=== PATIENT | female | born 1970 | race Caucasian/White ===

== ENCOUNTER 2017-07-26 17:25 | Emergency (ER) | payer OTHER ==
[~2017-07-26] VITALS: Ht 160 cm; Wt 89.8 kg
[~2017-07-26 17:25] MED LIST: ADDERALL 10 MG10 MG PO; AFRIN MENTHOL S15 ML; KEFLEX500 MG; LEXAPRO20 MG; METFORMIN PO; PERCOCET 7.5-31 EACH; XANAX XR1 MG PO; ZESTORETIC
[2017-07-26] MEDS ORDERED: VITAMIN D1000 UNI1 PO (17:47)
[2017-07-26] MEDS ORDERED: XANAX 0.25 MG0.25 MG PO (17:47)
[2017-07-26] MEDS ORDERED: LEXAPRO 10 MG T10 M2 PO (17:47)
[2017-07-26] MEDS ORDERED: PROTONIX 20 MG20 M1 PO (17:48)
[2017-07-26] MEDS ORDERED: SPIRONOLACTONE25 M1 PO (17:48)
[2017-07-26] MEDS ORDERED: ULTRAM 50MG TAB50 MG PO (18:44)
[2017-07-26 18:57] VITALS: BP 123/68
== END 2017-07-26 18:58 | disposition home or self-care (01) ==
LOC: M.ERS 17:25
DX: S90.31XA Contusion of right foot, initial encounter (principal); E11.9 Type 2 diabetes mellitus without complications; F32.9 Major depressive disorder, single episode, unspecified; F41.9 Anxiety disorder, unspecified; I10 Essential (primary) hypertension; Z88.1 Allergy status to other antibiotic agents; Z88.0 Allergy status to penicillin; Z88.5 Allergy status to narcotic agent; Z88.8 Allergy status to other drugs, medicaments and biological substances; W18.39XA Other fall on same level, initial encounter; Y93.89 Activity, other specified; Y92.89 Other specified places as the place of occurrence of the external cause; Y99.8 Other external cause status

== ENCOUNTER 2018-02-08 12:35 | Inpatient (IN) | payer OTHER ==
[~2018-02-08] VITALS: Ht 160 cm; Wt 94.3 kg
[~2018-02-08 12:35] MED LIST changes: +LEXAPRO 10 MG T10 M2 PO; +PROTONIX 20 MG20 M1 PO; +SPIRONOLACTONE25 M1 PO; +ULTRAM 50MG TAB50 MG PO; +VITAMIN D1000 UNI1 PO; +XANAX 0.25 MG0.25 MG PO
[2018-02-08 12:39] VITALS: BP 133/70
[2018-02-08] MEDS ORDERED: DONPERIDONE PO (12:44)
[2018-02-08 13:08] LABS: ABSOLUTE EOSINOPHILS 0.2 thou/uL (0.0-0.7); ABSOLUTE MONOCYTES 0.6 thou/uL (0.0-1.2); ABSOLUTE NEUTROPHILS 6.3 thou/uL (1.6-8.1); BASOPHILS 0.3 %; EOSINOPHILS 2.2 %; HEMATOCRIT 45.2 % (37.0-47.0); HEMOGLOBIN 15.4 gm/dL (12.0-15.0); LYMPHOCYTES 22.2 %; MCH 31.7 pg (26.0-34.0); MCHC 34.1 g/dL (28.0-37.0); MCV 92.7 fL (80.0-100.0); MONOCYTES 6.4 %; MPV 8.1 fl. (7.2-11.1); NUCLEATED RBCS 0 /100WBC; PLATELET COUNT* 238 thou/uL (150-400); POLYS 68.9 %; RBC 4.88 mil/uL (4.20-5.00); RDW-CV 13.7 % (10.5-14.5); WBC 9.2 thou/uL (4.0-11.0)
[2018-02-08 13:16] LABS: ANION GAP 7 mmol/L (7-16); BUN 15 mg/dL (7-18); CALCIUM 9.4 mg/dL (8.5-10.1); CHLORIDE 105 mmol/L (98-107); CO2 27 mmol/L (21-32); CREATININE 1.4 mg/dL (0.6-1.3); GLUCOSE 87 mg/dL (70-99); SODIUM 139 mmol/L (136-145)
[2018-02-08 13:17] LABS: PROTIME 10.1 Seconds (9.20-11.50)
[2018-02-08 13:28] LABS: ALBUMIN 3.3 g/dL (3.4-5.0); ALKALINE PHOSPHATASE 139 U/L (46-116); LIPASE 227 U/L (73-393); NT-PRO BRAIN NAT PEPTIDE 117 pg/mL (<300); SGOT 14 U/L (15-37); SGPT 21 U/L (30-65); TOTAL BILIRUBIN 0.3 mg/dL (<0.1-1.0); TOTAL PROTEIN 6.7 g/dL (6.4-8.2); TROPONIN-I LEVEL <0.06 ng/mL (<0.06)
[2018-02-08 16:55] VITALS: BP 120/75
[2018-02-08 17:00] VITALS: BP 134/86
[2018-02-08] MEDS ORDERED: TOPAMAX25 M1 PO (18:38)
[2018-02-08 20:10] VITALS: BP 112/65
[2018-02-09] VITALS (16 sets, daily range): BP systolic 90–124; BP diastolic 40–79
[2018-02-09 11:31] LABS: CHOLESTEROL 132 mg/dL (<200); HDL CHOLESTEROL 41 mg/dL (>40); LDL CHOLESTEROL 82 mg/dL (<100); TC:HDL 3.2 Ratio (Not establshd)
[2018-02-09 11:49] LABS: TRIGLYCERIDE 45 mg/dL (<150); VLDL 9 mg/dL (<40)
[2018-02-09 11:58] LABS: SERUM ASSESSMENT Clear
--- NOTE | 2018-02-09 15:36 | EKG ---
[place] [address] ELECTROCARDIOGRAM REPORT Name: MARGOTBRITNI CHRISTIAN Room: [address] ADM IN M.R.#: [id number] Admission: 02/08/18 Attend Phys: Deena De Leon Discharge: Date of : 70 Report #: [id number] THIS REPORT FOR: //name// [facility] ED Test Date: 2018-02-08 Test Time: 12:39:55 Pat Name: BRITNI FROST Department: Room: [facility] Gender: F Residence Counselor: TP : 1970 Requested By: Santos Veloz Order Number: [id number] MD: Hany Tavares Measurements Intervals [place] Rate: 85 P: 15 MN: 123 QRS: 10 QRSD: 76 T: 68 QT: 355 QTc: 422 Interpretive Statements Sinus rhythm Borderline low voltage, extremity leads ST elevation, consider inferior injury No previous ECG available for comparison Electronically Signed On 02-09-2018 15:36:48 TRAP OPERATOR by Hany Tavares [email or web address] <ELECTRONICALLY SIGNED> By: Hany Tavares MD, [facility] 02/09/18 1536 1239 1239 Hany Tavares MD, FACC /EPI
--- NOTE | 2018-02-09 15:37 | EKG ---
[place] [address] ELECTROCARDIOGRAM REPORT Name: BRITNI FROST Room: [address] ADM IN M.R.#: [id number] Admission: 02/08/18 Attend Phys: Deena De Leon Discharge: Date of : 70 Report #: [id number] THIS REPORT FOR: //name// [facility] ED Test Date: 2018-02-08 Test Time: 14:32:13 Pat Name: BRITNI FROST Department: Room: [facility] Gender: F Cra Officer: Jose Juan APPIAH : 1970 Requested By: Santos Veloz Order Number: [id number] MD: Hany Tavares Measurements Intervals [place] Rate: 62 P: -8 WA: 119 QRS: 13 QRSD: 83 T: 27 QT: 390 QTc: 396 Interpretive Statements Sinus rhythm Borderline short [place] interval Borderline low voltage, extremity leads ST elev, probable normal early repol pattern No previous ECG available for comparison Electronically Signed On 02-09-2018 15:37:24 SURGICAL TECHNOLOGY INSTRUCTOR by Hany Tavares [email or web address] <ELECTRONICALLY SIGNED> By: Hany Tavares MD, [facility] 02/09/18 1537 1432 1432 Hany Tavares MD, [facility] /EPI
[2018-02-09 22:05] LABS: GLYCOHEMOGLOBIN (HGB A1C) 5.8 % (4.8-5.6)
[2018-02-10] VITALS (9 sets, daily range): BP systolic 94–117; BP diastolic 53–80
[2018-02-10 04:52] LABS: CALCIUM 8.5 mg/dL (8.5-10.1); CREATININE 1.3 mg/dL (0.6-1.3); POTASSIUM 4.3 mmol/L (3.5-5.1)
[2018-02-10 04:58] LABS: ABSOLUTE BASOPHILS 0.1 thou/uL (0.0-0.2); ABSOLUTE EOSINOPHILS 0.2 thou/uL (0.0-0.7); ABSOLUTE LYMPHOCYTES 2.2 thou/uL (0.8-5.3); ABSOLUTE NEUTROPHILS 7.1 thou/uL (1.6-8.1); BASOPHILS 0.7 %; HEMATOCRIT 41.5 % (37.0-47.0); HEMOGLOBIN 13.8 gm/dL (12.0-15.0); LYMPHOCYTES 20.6 %; MCH 31.2 pg (26.0-34.0); MCHC 33.2 g/dL (28.0-37.0); MCV 93.8 fL (80.0-100.0); MONOCYTES 9.2 %; MPV 8.6 fl. (7.2-11.1); NUCLEATED RBCS 0 /100WBC; PLATELET COUNT* 203 thou/uL (150-400); POLYS 67.5 %; RBC 4.43 mil/uL (4.20-5.00); RDW-CV 13.9 % (10.5-14.5); WBC 10.5 thou/uL (4.0-11.0)
--- NOTE | 2018-02-10 10:12 | CON ---
[address] [address] CONSULTATION Name: BRITNI FROST Room: [address] ADM IN M.R.#: [id number] Admission: 02/08/18 Attend Phys: Deena De Leon Discharge: Date of : 70 Report #: [id number] THIS REPORT FOR: //name// CC: Antonio Strickland DATE OF SERVICE: 02/09/2018 INDICATION: Chest pain with elevated troponin. HISTORY OF PRESENT ILLNESS: The patient is a 47-year-old white female with no prior cardiac history. She was admitted to the hospital yesterday with chest discomfort that began after bringing some grocery bags into her house approximately 11:00. The pain has been persistent. EKG shows sinus rhythm with possible very subtle ST elevation in the inferior leads. The patient's initial troponin was less than 0.06 and has subsequently elevated to 7.1. She has continued to have midsternal chest discomfort. She denies nausea or diaphoresis. She is without other cardiac complaint. PAST MEDICAL HISTORY: 1. Depression. 2. Anxiety. 3. Gastroparesis. 4. Hypertension. 5. Previous adenoidectomy. 6. Previous septoplasty. 7. Bilateral knee arthroplasty. 8. Previous lumpectomy bilaterally. 9. Hysterectomy. SOCIAL HISTORY: The patient quit smoking in December. FAMILY HISTORY: No direct relatives with coronary artery disease, although the patient's paternal relatives had coronary artery disease. REVIEW OF SYSTEMS: Noncontributory. PHYSICAL EXAMINATION: VITAL SIGNS: Blood pressure 107/66, pulse 69 and regular. GENERAL: This is a pleasant female in no distress. Mood and affect appropriate. HEENT: The patient is wearing glasses. Extraocular muscles intact. Mucous membranes moist. NECK: Shows no jugular venous distention. There are no carotid bruits. CHEST: Reveals clear lung hughes without wheezes, rales or rhonchi. CARDIOVASCULAR: Reveals regular rhythm with normal S1 [place] [address] CONSULTATION Name: BRITNI FROST Room: [address] IN [facility].#: [id number] Admission: 02/08/18 Attend Phys: Deena De Leon Discharge: Date of : 70 Report #: [id number] appreciate murmur, rub or gallop. ABDOMEN: Reveals normal bowel sounds. The abdomen is soft, nontender. EXTREMITIES: Shows no edema. Peripheral pulses 2+ and palpable. SKIN: Warm and dry. LABORATORY DATA: A 12-lead EKG shows sinus rhythm with some perhaps very subtle ST segment elevation in the inferior leads. EKG today shows some T-wave inversion now in the inferior leads. IMPRESSION AND RECOMMENDATIONS: 1. Myocardial infarction. The patient will be taken to the cardiac catheterization lab for urgent angiography and possible intervention. Continue heparin drip at this time. The patient received aspirin in the Emergency Room and has been on beta elizabeth since being admitted. Further medication adjustments post-intervention. 2. Hypertension. Blood pressure adequately controlled presently. We will follow. 3. Lipid status unknown. We will check fasting lipid profile. <ELECTRONICALLY SIGNED> By: Hany Tavares MD, FACC 02/10/18 1012 1146 [id number] Tavares MD, FACC /nt
--- NOTE | 2018-02-10 10:18 | EKG ---
[place] [address] ELECTROCARDIOGRAM REPORT Name: MARGOTBRITNI CHRISTIAN Room: [address] ADM IN M.R.#: [id number] Admission: 02/08/18 Attend Phys: Deena De Leon Discharge: Date of : 70 Report #: [id number] THIS REPORT FOR: //name// Test Date: 2018-02-09 Test Time: 11:31:50 Pat Name: BRITNI FROST Department: Room: [facility] Gender: F [place] Room Operator: UNKNOWN : 1970 Requested By: Hany Tavares Order Number: [id number] Natividad MD: Jarvis Christine Measurements Intervals [place] Rate: 52 P: -14 MO: 124 QRS: 1 QRSD: 78 T: 3 QT: 427 QTc: 397 Interpretive Statements Sinus bradycardia Borderline low voltage, extremity leads Compared to ECG 02/08/2018 14:32:13 rate slowed Electronically Signed On 02-10-2018 10:18:36 SURGICAL TECHNOLOGIST by Jarvis Christine [email or web address] <ELECTRONICALLY SIGNED> By: Jarvis Christine MD, [facility] 02/10/18 1018 D: [id number] 30 Jarvis Christine MD, FACC /EPI
--- NOTE | 2018-02-10 12:46 | CARD ---
[address] [address] CARDIAC CATH REPORT Name: BRITNI FROST Room: 003- ADM IN M.R.#: [id number] Admission: 02/08/18 Attend Phys: Deena De Leon Discharge: Date of : 70 Report #: [id number] THIS REPORT FOR: //name// APPROVED REPORT Study performed: 02/09/2018 11:50:11 Patient Details Patient Status: IN Room #: ICU 3 The patient is a 47 year-old female Event Personnel Dano Stevenson Drawing Checker, Triny Lyn RN [employer] Sales Consultant, Rakesh Hicks Haley, Jessica RTSirisha Monitor Procedures Performed Art Access - R femoral artery* Left Heart Cath w/or w/o Coronaries LHC Hemostasis w/ Mynx Indication Non-STEMI , Chest pain Risk Factors HypercholesterolemiaPhysical Activity Procedure Narrative The patient was brought emergently to the Cardiac Catheterization Laboratory and was prepped and draped in a sterile manner. The right femoral was infiltrated with 2% Lidocaine subcutaneous anesthesia. A 6fr Ultimum Sheath sheath was inserted into the right femoral artery. Coronary angiography was performed using coronary diagnostic catheters. The right coronary system was accessed and visualized with a Diagnostic 5Fr 3DRC catheter. The left coronary system was accessed and visualized with a Diagnostic 6FR JL3.5 catheter. The left ventricle was accessed and visualized with a Diagnostic 6Fr angled pigtail catheter. Closure device was deployed with a Fr MynxGrip 6/7F. The patient tolerated the procedure well and there were no complications associated with the procedure. Intraoperative Conscious Sedation Sedation start time: 12:36 Case end Time: Fluoro Time: 6.4 minutes Dose: DAP 95351 cGycm2 1355 [place] [address] CARDIAC CATH REPORT Name: BRITNI FROST Room: [address] IN [facility]#: [id number] Admission: 02/08/18 Attend Phys: Deena De Leon Discharge: Date of : 70 Report #: [id number] Contrast Type and Amount: Visipaque 130 ml Coronary Angiography The patient's coronary anatomy is co- dominant. Diagnostic Cath Left Main There are separate ostia for the LAD and left circumflex arteries. LAD This is a moderate size caliber vessel, traveling down the anterior wall and wrapping around the apex, terminating in the distal inferior wall. There are no flow-limiting lesions in the LAD or its branches. Diagonal 1 Small to moderate size caliber vessel, patent with no flow-limiting lesions. Circumflex Codominant vessel, with no flow-limiting lesions. OM1 Moderate size caliber vessel, traveling down the lateral wall and terminates in the distal inferolateral segment. This is a patent vessel with no flow-limiting lesions. Right Coronary This is a patent vessel, with no flow-limiting lesions. R PDA This is a small-caliber vessel, appears to have a total occlusion in the mid segment. Medical therapy is recommended. Left Ventriculography The left ventricle is normal in size with normal contractility. The left ventricular ejection fraction is estimated to be 50-55%. Hemodynamics The aortic pressure is 126/65 mmHg with a mean of 61 mmHg. The left ventricular pressure is 126/7 mmHg with a mean of mmHg. The left ventricular end diastolic pressure is 15 mmHg. Pullback from the left ventricle to the aorta revealed no gradient across the aortic valve. Conclusion 1. Essentially patent coronary artery vessels with no evidence for flow limiting lesions. 2. Codominant system. 3. There appears to be a total occlusion [place] [address] CARDIAC CATH REPORT Name: BRITNI FROST Room: [address] IN ..#: [id number] Admission: 02/08/18 Attend Phys: Deena De Leon Discharge: Date of : 70 Report #: [id number] small PDA vessel, medical therapy is recommended. 4. Recommend aggressive risk factor management. <ELECTRONICALLY SIGNED> By: Dano Stevenson MD 02/10/18 1245 1245 1245Jin Chase Stevenson MD /INF
[2018-02-11] VITALS: BP 108/65
[2018-02-11 04:00] VITALS: BP 100/52
[2018-02-11 08:44] VITALS: BP 97/40
[2018-02-11 11:23] VITALS: BP 111/67
--- NOTE | 2018-02-11 13:52 | 2DMMODE ---
[place] [address] 2 D/M-MODE ECHOCARDIOGRAM Name: MARGOTBRITNI AGUIARITH Room: [facility] ADM IN [facility]#: [id number] Admission: 02/08/18 Attend Phys: Silvia Strickland Discharge: Date of : 70 Date of Service: 02/11/18 1352 Report #: [id number] THIS REPORT FOR: //name// APPROVED REPORT Study performed: 02/11/2018 11:39:46 EXAM: Comprehensive 2D, Doppler, and color-flow Echocardiogram Patient Location: In-Patient Room #: [facility] Status: routine BSA: 1.97 HR: 65 bpm BP: 92/40 mmHg Rhythm: NSR Other Information Study Quality: Good Indications Chest Pain 2D Dimensions IVSd: 9.79 (7-11mm) LVOT Diam: 19.30 (18-24mm) LVDd: 40.79 mm PWd: 8.60 (7-11mm) Ascending Ao: 31.14 (22-36mm) LVDs: 25.80 (25-40mm) Aortic Root: 28.63 mm Volumes Left Atrial Volume (Systole) LA ESV Index: 14.00 mL/m2 Aortic Valve AoV Peak Rustam.: 1.34 m/s AO Peak Gr.: 7.16 mmHg LVOT Max P.38 mmHg AO Mean Gr.: 3.63 mmHg LVOT Mean P.00 mmHg LVOT Max V: 1.05 m/s AO V2 VTI: 26.30 cm LVOT Mean V: 0.64 m/s VASYL (VTI): 2.43 cm2 LVOT V1 VTI: 21.83 cm Mitral Valve E/A Ratio: 1.04 MV Decel. Time: 194.76 ms MV E Max Rustam.: 0.85 m/[place] [address] 2 D/M-MODE ECHOCARDIOGRAM Name: BRITNI FROST Room: [place] [address] ADM IN .R.#: [id number] Admission: 02/08/18 Attend Phys: Silvia Strickland Discharge: Date of : 70 Date of Service: 02/11/18 1352 Report #: [id number] MV PHT: 56.48 ms MVA (PHT): 3.90 cm2 TDI E/Lateral E': 5.31 E/Medial E': 10.63 Medial E' Rustam.: 0.08 m/s Lateral E' Rustam.: 0.16 m/s Pulmonary Valve PV Peak Rustam.: 0.93 m/s PV Peak Gr.: 3.45 mmHg Tricuspid Valve RAP Estimate: 5.00 mmHg TR Peak Gr.: 20.82 mmHg RVSP: 25.00 mmHg PA Pressure: 25.00 mmHg Left Ventricle The left ventricle is normal size. There is normal LV segmental wall motion. There is normal left ventricular wall thickness. Left ventricular systolic function is normal. LVEF is 60-65%. Transmitral Doppler flow pattern suggests impaired LV relaxation. Right Ventricle The right ventricle is normal size. The right ventricular systolic function is normal. Atria The left atrium size is normal. The right atrium size is normal. Aortic Valve The aortic valve is normal in structure. No aortic regurgitation is present. There is no aortic valvular stenosis. Mitral Valve The mitral valve is normal in structure. Trace mitral regurgitation. No evidence of mitral valve stenosis. Tricuspid Valve The tricuspid valve is normal in structure. No pulmonary hypertension. Trace tricuspid regurgitation. Pulmonic Valve The pulmonary valve is normal in structure. There is no pulmonic [place] [address] 2 D/M-MODE ECHOCARDIOGRAM Name: BRITNI FROST Room: [address] IN [facility]#: [id number] Admission: 02/08/18 Attend Phys: Silvia Strickland Discharge: Date of : 70 Date of Service: 02/11/18 1352 Report #: [id number] Great Vessels The aortic root is normal in size. IVC is not well visualized. Pericardium There is no pericardial effusion. <Conclusion> The left ventricle is normal size. There is normal left ventricular wall thickness. Left ventricular systolic function is normal. LVEF is 60-65%. Transmitral Doppler flow pattern suggests impaired LV relaxation. <ELECTRONICALLY SIGNED> By: Hany Tavares MD, FACC 02/11/18 1352 1352 135 Hany Tavares MD, FACC /INF
[2018-02-11] MEDS ORDERED: TOPROL XL25 MG PO (14:24)
[2018-02-11] MEDS ORDERED: LIPITOR10 MG PO (14:25)
[2018-02-11] MEDS ORDERED: COLCHICINE0.6 MG PO (14:25)
[2018-02-11 14:26] VITALS: BP 111/67
[2018-02-11 15:24] VITALS: BP 89/51
[2018-02-11] MEDS ORDERED: IBUPROFEN 800800 M1 PO (15:48)
== END 2018-02-11 16:38 | disposition home or self-care (01) | DRG 282 ==
LOC: M.ERS 12:35 → M.TBA-ER 15:45 → M.2W 15:45 → M.ICU 02-09 13:08 → M.2W 02-11 00:14
PROVIDERS: Emergency Medicine; Internal Medicine Cardiovascular Disease; ADMIT Internal Medicine
PROC: 4A023N7 Measurement of Cardiac Sampling and Pressure, Left Heart, Percutaneous Approach (ICD-10-PCS; principal; 2018-02-09)
PROC: B211YZZ Fluoroscopy of Multiple Coronary Arteries using Other Contrast (ICD-10-PCS; principal; 2018-02-09)
DX: I21.4 Non-ST elevation (NSTEMI) myocardial infarction (principal); F32.9 Major depressive disorder, single episode, unspecified; I51.4 Myocarditis, unspecified; K31.84 Gastroparesis; Z96.653 Presence of artificial knee joint, bilateral; F41.9 Anxiety disorder, unspecified; I10 Essential (primary) hypertension; Z88.6 Allergy status to analgesic agent; Z88.0 Allergy status to penicillin; Z88.8 Allergy status to other drugs, medicaments and biological substances; Z79.82 Long term (current) use of aspirin; Z79.899 Other long term (current) drug therapy; Z90.710 Acquired absence of both cervix and uterus; Z87.891 Personal history of nicotine dependence

== ENCOUNTER 2018-02-21 10:24 | Inpatient (IN) | payer OTHER ==
[~2018-02-21] VITALS: Ht 160 cm; Wt 88.5 kg
[~2018-02-21 10:24] MED LIST changes: +COLCHICINE0.6 MG PO; +DONPERIDONE PO; +IBUPROFEN 800800 M1 PO; +LIPITOR10 MG PO; +TOPAMAX25 M1 PO; +TOPROL XL25 MG PO
[2018-02-21 10:27] VITALS: BP 127/83
[2018-02-21 11:11] LABS: ABSOLUTE BASOPHILS 0.1 thou/uL (0.0-0.2); ABSOLUTE EOSINOPHILS 0.1 thou/uL (0.0-0.7); ABSOLUTE LYMPHOCYTES 2.3 thou/uL (0.8-5.3); ABSOLUTE MONOCYTES 1.1 thou/uL (0.0-1.2); ABSOLUTE NEUTROPHILS 8.8 thou/uL (1.6-8.1); EOSINOPHILS 0.9 %; HEMATOCRIT 43.4 % (37.0-47.0); HEMOGLOBIN 14.7 gm/dL (12.0-15.0); LYMPHOCYTES 18.3 %; MCH 31.1 pg (26.0-34.0); MCHC 33.8 g/dL (28.0-37.0); MCV 91.9 fL (80.0-100.0); MPV 8.5 fl. (7.2-11.1); NUCLEATED RBCS 0 /100WBC; PLATELET COUNT* 299 thou/uL (150-400); POLYS 70.8 %; RBC 4.72 mil/uL (4.20-5.00); RDW-CV 13.6 % (10.5-14.5); WBC 12.5 thou/uL (4.0-11.0)
[2018-02-21 11:15] LABS: PROTIME 10.5 Seconds (9.20-11.50)
[2018-02-21 11:42] LABS: ANION GAP 12 mmol/L (7-16); BUN 27 mg/dL (7-18); CALCIUM 9.2 mg/dL (8.5-10.1); CHLORIDE 103 mmol/L (98-107); CO2 22 mmol/L (21-32); CREATININE 1.5 mg/dL (0.6-1.3); GLUCOSE 99 mg/dL (70-99); POTASSIUM 3.9 mmol/L (3.5-5.1); SODIUM 137 mmol/L (136-145)
[2018-02-21 11:47] LABS: ALBUMIN 3.6 g/dL (3.4-5.0); ALKALINE PHOSPHATASE 139 U/L (46-116); MAGNESIUM 1.7 mg/dL (1.8-2.4); NT-PRO BRAIN NAT PEPTIDE 915 pg/mL (<300); SGOT 17 U/L (15-37); SGPT 24 U/L (30-65); TOTAL BILIRUBIN 0.3 mg/dL (<0.1-1.0); TOTAL PROTEIN 6.7 g/dL (6.4-8.2); TROPONIN-I LEVEL <0.06 ng/mL (<0.06)
[2018-02-21 15:05] VITALS: BP 141/94
--- NOTE | 2018-02-21 16:12 | NUR ---
PT ARRIVED ON THE UNIT AT 1515. ASSESSED PT AND DOCUMENTED. CARDIAC MONITER ON TRACING ST HR 116. PT IS A&O WITH NO C/O PAIN. 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 THIS IS HER LAST XMAS WITH HER BOSS HE IS RETIREING. VSS WNL. LUNGS ARE CLEAR ON ROOM AIR. PT IS AFEBRILE. PT REFUSED SCD'S AND THE FLUE SHOT. FALL AGREEMENT SIGNED. BED IN LOW POSITION CALL LIGHT IS IN REACH.
[2018-02-21 16:19] VITALS: BP 143/79
--- NOTE | 2018-02-21 16:23 | 2DMMODE ---
[place] [address] 2 D/M-MODE ECHOCARDIOGRAM Name: MARGOTBRITNI CHRISTIAN Room: [facility] ADM IN [facility]#: [id number] Admission: 02/21/18 Attend Phys: Eyal Fregoso Discharge: Date of : 70 Date of Service: 02/21/18 1623 Report #: [id number] THIS REPORT FOR: //name// APPROVED REPORT Study performed: 02/21/2018 15:48:38 EXAM: Limited 2D Echocardiogram Patient Location: In-Patient Room #: [facility] Status: routine BSA: 1.92 HR: 111 bpm BP: 141/94 mmHg Rhythm: NSR Indications Dyspnea Left Ventricle The left ventricle is normal size. There is normal left ventricular wall thickness. The left ventricular systolic function is normal. LVEF is 60-65%. Right Ventricle The right ventricle is normal size. The right ventricular systolic function is normal. Atria The left atrium size is normal. The right atrium size is normal. Aortic Valve The aortic valve is normal in structure. Mitral Valve The mitral valve is normal in structure. Tricuspid Valve The tricuspid valve is normal in structure. Pulmonic Valve The pulmonary valve is normal in structure. Great Vessels The aortic root is normal in size. IVC is normal in size and [address] [address] 2 D/M-MODE ECHOCARDIOGRAM Name: BRITNI FROST Room: [address] ADM IN M.R.#: [id number] Admission: 02/21/18 Attend Phys: Eyal Fregoso Discharge: Date of : 70 Date of Service: 02/21/181622 Report #: [id number] collapses >50% with inspiration. Pericardium There is no pericardial effusion. <Conclusion> The left ventricle is normal size. There is normal left ventricular wall thickness. The left ventricular systolic function is normal. LVEF is 60-65%. IVC is normal in size and collapses >50% with inspiration. There is no pericardial effusion. <ELECTRONICALLY SIGNED> By: Hany Tavares MD, FACC 02/21/181622 22 22 Hany Tavares MD, FACC /INF
--- NOTE | 2018-02-21 16:37 | EKG ---
[place] [address] ELECTROCARDIOGRAM REPORT Name: BRITNI FROST Room: [address] ADM IN M.R.#: [id number] Admission: 02/21/18 Attend Phys: Radu Heath Discharge: Date of : 70 Report #: [id number] THIS REPORT FOR: //name// [facility] ED Test Date: 2018-02-21 Test Time: 10:27:56 Pat Name: BRITNI FROST Department: Room: [facility] Gender: F Gyn: Jose Juan APPIAH : 1970 Requested By: Ericka Mcnamara Order Number: [id number] MD: Hany Tavares Measurements Intervals [place] Rate: 110 P: 27 [place]: 132 QRS: -36 QRSD: 73 T: 13 QT: 309 QTc: 419 Interpretive Statements Sinus tachycardia Inferior infarct, old Compared to ECG 02/09/2018 11:31:50 Myocardial infarct finding now present Sinus bradycardia no longer present Electronically Signed On 02-21-2018 16:36:57 SOLE TIER by Hany Tavares [email or web address] <ELECTRONICALLY SIGNED> By: Hany Tavares MD, FACC 02/21/18 1636 1027 1027 Hany Tavares MD, [facility] /EPI
[2018-02-21 20:38] VITALS: BP 103/74
[2018-02-21] MEDS ORDERED: XANAX1 MG PO (20:42)
[2018-02-21] MEDS ORDERED: LEXAPRO20 MG PO (20:54)
[2018-02-21 23:53] VITALS: BP 105/64
[2018-02-22 03:57] VITALS: BP 98/48
--- NOTE | 2018-02-22 07:41 | NUR ---
PT IS ABLE TO COMMUNICATE HER NEEDS TO STAFF EFFECTIVELY. SHE HAS DENIED THE NEED FOR PAIN MEDICATION UP TO THIS TIME; IBUPROFEN IS PRESCRIBED BY CARDIOLOGY AN ANTI-INFLAMMATORY.
[2018-02-22 08:00] VITALS: BP 110/57
[2018-02-22 08:41] LABS: HEMATOCRIT 44.8 % (37.0-47.0); HEMOGLOBIN 15.2 gm/dL (12.0-15.0); MCH 31.3 pg (26.0-34.0); MCHC 33.9 g/dL (28.0-37.0); MCV 92.2 fL (80.0-100.0); MPV 9.3 fl. (7.2-11.1); NUCLEATED RBCS 0 /100WBC; PLATELET COUNT* 307 thou/uL (150-400); RBC 4.86 mil/uL (4.20-5.00); RDW-CV 13.4 % (10.5-14.5); WBC 20.5 thou/uL (4.0-11.0)
[2018-02-22 08:51] LABS: CALCIUM 9.1 mg/dL (8.5-10.1); CREATININE 1.7 mg/dL (0.6-1.3); POTASSIUM 4.4 mmol/L (3.5-5.1)
[2018-02-22 09:27] LABS: ABSOLUTE LYMPHOCYTES 2.1 thou/uL (0.8-5.3); ABSOLUTE MONOCYTES 0.2 thou/uL (0.0-1.2); ABSOLUTE NEUTROPHILS 18.2 thou/uL (1.6-8.1); PLATELET ESTIMATE ADEQUATE
[2018-02-22] MEDS ORDERED: LEVAQUIN 750 M750 MG PO (10:03)
[2018-02-22] MEDS ORDERED: VENTOLIN HFA 1818 GM INH (10:03)
[2018-02-22] MEDS ORDERED: PREDNISONE 10 M10 MG PO (10:03)
[2018-02-22 11:36] VITALS: BP 103/58
--- NOTE | 2018-02-22 11:51 | NUR ---
ASSUMED CARE OF PATIENT THIS AM AT 0730. PATIENT IS ALERT AND ORIENTED X 1. SHE DENIES PAIN AND DISCOMFORT THIS AM. PATIENT HAS BEEN UP IN THE ROOM INDEPENDENTLY. TELE HAS SHOWS NSR. DR LAUGHLIN AND CONSTRUCTION WORKER IN TO ROUND AND DISCHARGE ORDERS WERE WRITTEN. DISCHARGE PAPERS STARTED. ATTEMPTED TO MAKE A FOLLOWUP APPOINTMENT WITH CARDILOGY BUT APPOINTMENTS UNAVAILBLE WITHIN THE 7 DAY PERIOD. THE EARLYEST APPOINTMENT WAS MADE FOR 03/[address] PAREDES. PATIENT TO SEE PULMONOLOGY PRIOR TO DISCHARGE.
[2018-02-22 16:02] VITALS: BP 110/60
--- NOTE | 2018-02-25 06:53 | CON ---
[address] [address] CONSULTATION Name: MARGOTBRITNI AGUIARITH Room: [address] IN M.R.#: [id number] Admission: 02/21/18 Attend Phys: Radu Heath Discharge: 02/22/18 Date of : 70 Report #: [id number] THIS REPORT FOR: //name// CC: Bhavna Fregoso TYPE OF REPORT: Cardiology consultation. INDICATION: Acute shortness of breath. HISTORY OF PRESENT ILLNESS: The patient is a 47-year-old white female who is known to myself. She was recently in the hospital approximately 2 weeks ago and treated for what was felt to be acute pericarditis. She did have an elevation of her troponin to 7. Cardiac catheterization at that time revealed possibly an occlusion of a very small distal posterolateral branch of the right coronary artery. No other hemodynamically significant stenosis was noted. She was placed on ibuprofen and colchicine at that time and discharged uneventfully. She returns now 10 days later with reports of significant worsening of her shortness of breath and dyspnea. She is having some orthopnea. She denies any chest pain. She is without other cardiac complaint at this time. Chest x-ray shows clear lung hughes. Elevated BNP suggests at least some component of heart failure. An abbreviated echocardiogram has been ordered and is pending. She is moderately tachycardic in the Emergency Room. Her blood pressure appears stable. She is without other cardiac complaint. PAST MEDICAL HISTORY: 1. Recent zii-[id number]-qlmmxtbbp myocardial infarction with troponin of 7, possibly related to occlusion of a small posterolateral LV branch. She had no other significant coronary disease noted at that time. 2. Hypertension. 3. Gastroparesis. 4. Anxiety. 5. Depression. 6. Adenoidectomy. 7. Septoplasty. 8. Bilateral knee arthroplasty. 9. Bilateral breast lumpectomy. 10. Hysterectomy. SOCIAL HISTORY: The patient quit smoking in December of this year. FAMILY HISTORY: Noncontributory. REVIEW OF SYSTEMS: Noncontributory. PHYSICAL EXAMINATION: [place] [address] CONSULTATION Name: BRITNI FROST Room: [address]#: [id number] Admission: 02/21/18 Attend Phys: Radu Heath Discharge: 02/22/18 Date of : 70 Report #: [id number] VITAL SIGNS: Blood pressure 141/94 and pulse 120 and regular. GENERAL: This is a moderately obese, pleasant white female who does not appear to be in distress. Mood and affect appropriate. HEENT: Extraocular muscles intact. Mucous membranes are moist. NECK: Shows no jugular venous distention. I do not appreciate any carotid bruit. CHEST: Reveals clear lung hughes. CARDIOVASCULAR: Reveals a tachycardic rhythm that is regular without gallop or murmur. ABDOMEN: Reveals normal bowel sounds. The abdomen is soft and nontender. EXTREMITIES: Shows no edema. Peripheral pulses 2+ and palpable. SKIN: Dry. RADIOLOGICAL DATA: A 12-lead EKG shows sinus tachycardia without acute ST or T-wave abnormality. LABORATORY DATA: Labs are reviewed. Sodium 137, potassium 3.9, chloride 103, bicarb 22, BUN 27, creatinine 1.5 and serum glucose 99. LFTs are within normal limits with the exception of an alkaline phosphatase that is 139. Troponin is less than 0.06. NT-pro-BNP is 915. White blood cell count 12.5; hemoglobin 14.7 and platelet count 299,000. IMPRESSION AND RECOMMENDATIONS: 1. Recent acute pericarditis. Continue ibuprofen and colchicine at current dose. 2. Possible acute heart failure with elevated BNP. Suspect she may have some component of diastolic heart failure. An abbreviated echo has been ordered and is pending. 3. Tachycardia, etiology not clear at this point in time. I have elected to start low dose beta elizabeth. We will follow clinically. 4. Hypertension. Blood pressure adequately controlled. <ELECTRONICALLY SIGNED> By: Hany Tavares MD, FACC 02/25/18 0653 1519 204Michilario Tavares MD, FACC /nt
== END 2018-02-22 15:45 | disposition home or self-care (01) | DRG 293 ==
LOC: M.ERS 10:24 → M.2W 13:28 → M.TBA-ER 13:28 → M.2W 15:22
PROVIDERS: Family Medicine; Nurse Practitioner Family; ADMIT Internal Medicine
DX: I11.0 Hypertensive heart disease with heart failure (principal); F41.9 Anxiety disorder, unspecified; F32.9 Major depressive disorder, single episode, unspecified; I50.9 Heart failure, unspecified; J40 Bronchitis, not specified as acute or chronic; Z96.653 Presence of artificial knee joint, bilateral; R00.0 Tachycardia, unspecified; Z90.710 Acquired absence of both cervix and uterus; Z88.6 Allergy status to analgesic agent; Z88.0 Allergy status to penicillin; Z88.8 Allergy status to other drugs, medicaments and biological substances; Z87.891 Personal history of nicotine dependence; Z79.899 Other long term (current) drug therapy

== ENCOUNTER → 2020-07-04 | Day surgery (SDC) | payer OTHER ==
[~2020-07-04] VITALS: Ht 160 cm; Wt 90.7 kg
[~2020-07-04] MED LIST changes: -ADDERALL 10 MG10 MG PO; +ADDERALL 5 MG TA5 M1 PO; +CHANTIX1 MG PO; +CHILDREN'S ASPI81 MG PO; +LEVAQUIN 750 M750 MG PO; +LEXAPRO20 MG PO; +NITROSTAT0.4 M1 SUBLING; +NORVASC5 M1 PO; +PREDNISONE 10 M10 MG PO; +RIZATRIPTAN5 MG; +VENTOLIN HFA 1818 GM INH; +XANAX1 MG PO
[2020-07-04 12:19] LABS: HEMATOCRIT 44.8 % (37.0-47.0); MCH 30.7 pg (26.0-34.0); MCHC 33.4 g/dL (28.0-37.0); MCV 91.9 fL (80.0-100.0); MPV 8.5 fl. (7.2-11.1); NUCLEATED RBCS 0 /100WBC; PLATELET COUNT* 168 thou/uL (150-400); RBC 4.87 mil/uL (4.20-5.00); RDW-CV 13.4 % (10.5-14.5); WBC 7.7 thou/uL (4.0-11.0)
[2020-07-04 12:28] LABS: CALCIUM 9.4 mg/dL (8.5-10.1); CREATININE 1.5 mg/dL (0.6-1.3); POTASSIUM 4.4 mmol/L (3.5-5.1)
[2020-07-04 12:31] LABS: APTT 23.3 Seconds (25.0-31.3); PROTIME 10.3 Seconds (9.20-11.50)
[2020-07-04 12:41] LABS: ABSOLUTE LYMPHOCYTES 2.5 thou/uL (0.8-5.3); ABSOLUTE MONOCYTES 0.5 thou/uL (0.0-1.2); ABSOLUTE NEUTROPHILS 4.8 thou/uL (1.6-8.1); PLATELET ESTIMATE ADEQUATE
[2020-07-04 12:42] LABS: ANISOCYTOSIS 1+; CK-MB MASS 0.8 ng/mL (<0.5-3.6); MAGNESIUM 1.7 mg/dL (1.8-2.4); POIKILOCYTOSIS 1+; TOTAL BILIRUBIN 0.7 mg/dL (<0.1-1.0); TOTAL PROTEIN 7.5 g/dL (6.4-8.2)
--- NOTE | 2020-07-04 16:33 | EKG ---
[place] [address] ELECTROCARDIOGRAM REPORT Name: BRITNI FROST Room: [facility]#: [id number] Admission: 07/04/20 Attend Phys: Jarvis Christine MD Discharge: Date of : 70 Date of Service: 07/04/20 1201 Report #: [id number] THIS REPORT FOR: //name// [facility] ED Test Date: 2020-07-04 Test Time: 12:01:39 Pat Name: BRITNI FROST Department: Room: Gender: Glass Driller: OR : 1970 Requested By: Benny Samson Order Number: [id number] MD: Jarvis Christine Measurements Intervals [place] Rate: 88 P: 15 MT: 125 QRS: -7 QRSD: 81 T: 27 QT: 336 QTc: 407 Interpretive Statements Sinus rhythm Compared to ECG 02/21/2018 10:27:56 Sinus tachycardia no longer present Electronically Signed On 07-04-2020 16:33:33 CDT by Jarvis Christine [email or web address] <ELECTRONICALLY SIGNED> By: Jarvis Christine MD, [facility] 07/04/20 1633 1201 1201 Jarvis Christine MD, [facility] /EPI
[2020-07-04 17:05] VITALS: BP 142/77
[2020-07-04 17:21] VITALS: BP 130/81
--- NOTE | 2020-07-04 17:26 | CARD ---
[address] [address] CARDIAC CATH REPORT Name: BRITNI FROST Room: [facility] M.R.#: [id number] Admission: 07/04/20 Attend Phys: Jarvis Christine MD, F Discharge: Date of : 70 Report #: [id number] THIS REPORT FOR: cc: Anitha Stevenson Linda J. DO Blick, David R. MD [facility] ~ APPROVED REPORT Study performed: 07/04/2020 14:43:19 Patient Details Patient Status: ED Room #: The patient is a 50 year-old female Event Personnel Jarvis Christine Pest Control Service Sales Agent, Anamaria Stallworth RN Medical Donation Professional, Kane Sosa CONCRETE BATCHING PLANT OPERATOR Monitor, Alba Schneider RTR Scrub Procedures Performed Art Access - R radial artery Left Heart Cath w/or w/o Coronaries [id number] [facility] Indication Chest pain Risk Factors Hypercholesterolemia, Hypertension, Tobacco History () Previous Procedures/Diagnoses Previous [place] Admission/Lab Medications/Medications given during procedure Heparin Unfract. Procedure Narrative The patient was brought urgently to the Cardiac Catheterization Laboratory and was prepped and draped in a sterile manner. The right wrist was infiltrated with 2% Lidocaine subcutaneous anesthesia. A Slender Glidesheath sheath was inserted into the right radial artery. Coronary angiography was performed using coronary diagnostic catheters. The right coronary system was accessed and visualized with a JR4 catheter. The left coronary system was accessed and visualized with a JL 3.5 catheter. The left ventricle was accessed and visualized with a PIG catheter. Left ventricular/[place] [address] CARDIAC CATH REPORT Name: MARGOTBRITNI GINO Room: [facility].#: [id number] Admission: 07/04/20 Attend Phys: Jarvis Christine MD, F Discharge: Date of : 70 Report #: [id number] gradient assessed via catheter pullback. Left ventriculogram was performed in LAZO projection. Closure device was deployed with a 6 Fr vascband. The patient tolerated the procedure well and there were no complications associated with the procedure. There was no hematoma. Left main artery had 2 separate ostia. The LAD was visualized with a JL3.5 catheter, and the circumflex with a JL4.0 catheter. Intraoperative Conscious Sedation Sedation start time: 1535 Case end Time: 1607 Fentanyl 25 mcg Versed 2 mg Fluoro Time: 5.4 minutes Dose: DAP 93827 cGycm2 1085 1065 mGy Contrast Type and Amount: Visipaque 120 ml Coronary Angiography The patient's coronary anatomy is right dominant. [place] Artery Percent Stenosis Left Main: % Prox LAD: 0 % Mid/Distal LAD: 0 % Circumflex: 0 % RCA: 0 % Ramus: % Left Ventriculography The left ventricular ejection fraction is estimated to be 55-60%. Left ventricular wall motion abnormalities are not present. There is no mitral insufficiency. Hemodynamics The aortic pressure is 126/72 mmHg with a mean of 87 mmHg. The left ventricular pressure is 125/10 mmHg with a mean of mmHg. The left ventricular end diastolic pressure is 12 mmHg. There was no gradient across the aortic valve upon pullback. Pullback from the left ventricle to the aorta revealed no gradient across the aortic valve. Conclusion 1. no significant CAD 2. LVEF 55-60% 3. suspect [place]iac [place] [address] CARDIAC CATH REPORT Name: FROSTBRITNI CHRISTIAN Room: [facility].#: [id number] Admission: 07/04/20 Attend Phys: Jarvis Christine MD, F Discharge: Date of : 70 Report #: [id number] Recommendations Aggressive Medical Therapy <ELECTRONICALLY SIGNED> By: Jarvis Christine MD, [facility] 07/04/201725 25 25Daclarissa Christine MD, [facility] /INF
--- NOTE | 2020-07-08 13:16 | CON ---
[address] [address] CONSULTATION Name: BRITNI FROST Room: [facility] M.R.#: [id number] Admission: 07/04/20 Attend Phys: Jarvis Christine MD, F Discharge: Date of : 70 Report #: [id number] THIS REPORT FOR: cc: Anitha Stevenson Linda J. DO Blick, David R. MD [facility] ~ DOC #: [id number] cc: DO Jarvis Alegria MD [facility] DATE OF CONSULTATION: 07/04/2020 CARDIOLOGY CONSULTATION HISTORY OF PRESENT ILLNESS: The patient is a 50-year-old single white female, who I was asked to see in the emergency room today after she complained of chest pain. The patient initially presented back in 02/2018 with chest pain. She was noted to have an abnormal EKG and elevated troponin. She underwent a cardiac catheterization by Dr. Dano Stevenson from the right femoral artery. Cardiac catheterization showed separate ostia for the LAD and circumflex. There were no significant stenosis noted. However, right coronary artery had a small PDA branch that appeared to be totally occluded. Ejection fraction 55%. Medical therapy was recommended. Since that time, the patient continues to have chest pain. She was actually admitted to [facility] in last February with chest pain, apparently underwent pharmacologic nuclear stress test and was discharged. She was placed on colchicine. She was doing well until yesterday while working out. She felt her heart race, felt short of breath, had pain in her chest pain and in her left arm. She took four nitroglycerin and seemed to improve the pain that were persisted until today. She had an ECG performed in her doctor's office and was sent to the emergency room for further evaluation and treatment. She denies the pain related to take a deep breath, coughing and food. She has had no bleeding, fever. She has had no trauma to her chest. She denies exertional dyspnea, palpitations or syncope. PAST SURGICAL HISTORY: She had cholecystectomy, hysterectomy and knee surgery. CURRENT MEDICATIONS: Include colchicine, Norvasc. She takes Chantix, Xanax, Lexapro, Spiriva, Lipitor, aspirin a day, Protonix for GERD. ALLERGIES: SHE HAS AN ALLERGY TO MULTIPLE MEDICATIONS INCLUDING WELLBUTRIN AND CODEINE. FAMILY HISTORY: Father, heart disease. SOCIAL HISTORY: Single, lives here in [place]. [place] [address] CONSULTATION Name: BRITNI FROST Room: [facility]#: [id number] Admission: 07/04/20 Attend Phys: Jarvis Christine MD, F Discharge: Date of : 70 Report #: [id number] Stevenson's office. Smoked a half pack of cigarettes a day, quit six months ago. No alcohol abuse. REVIEW OF SYSTEMS: She has had no history of stroke. She has asthma. No liver disease. She has had chronic kidney disease, no cancer, no psychiatric illness, no chronic skin conditions. PHYSICAL EXAMINATION: GENERAL: Revealed middle-aged female. No acute distress. VITAL SIGNS: Blood pressure is 130/80, pulse 80. She is afebrile. HEENT: She was anicteric. Conjunctivae pink. Mucosa is moist. NECK: Veins do not appear distended. No carotid bruits. CHEST: Clear to auscultation. HEART: Regular rate and rhythm without rub. ABDOMEN: Soft. EXTREMITIES: Had no edema. Dorsalis pedis pulse 1+ bilaterally. SKIN: Cool and dry. NEUROLOGIC: Nonfocal. IMAGING AND DIAGNOSTIC DATA: Her ECG today shows a sinus rhythm, no significant ST or T-wave changes noted. Her workup included chest x-ray, normal heart size and clear lung hughes. LABORATORY WORK: Sodium 138, creatinine 1.5. Her liver function studies were normal. Troponin 0.06. White blood cell count 7.7, hemoglobin 15.0. Her COVID antigen stat test was negative. IMPRESSION AND RECOMMENDATIONS: 1. Persistent chest pain. Recommend cardiac catheterization. 2. Hypertension. The patient is on a calcium elizabeth. 3. Hyperlipidemia. The patient is on a statin drug. 4. Previous tobacco abuse. Reports the patient quit smoking. 5. Chronic kidney disease. Jarvis Christine MD [facility] DRB/STD <ELECTRONICALLY SIGNED> By: Jarvis Christine MD, [facility] 07/08/20 1316 1333 [id number] Christine MD, [facility] /nt
== END | disposition home or self-care (01) ==
LOC: M.CL 11:57 → M.ERS 11:57 → M.CL 15:05 → M.ERS 15:05
PROVIDERS: Family Medicine; ATTEND Internal Medicine Cardiovascular Disease
DX: R07.9 Chest pain, unspecified (principal); I10 Essential (primary) hypertension; E78.00 Pure hypercholesterolemia, unspecified; F32.9 Major depressive disorder, single episode, unspecified; F41.9 Anxiety disorder, unspecified; Z98.890 Other specified postprocedural states; Z79.899 Other long term (current) drug therapy; Z88.0 Allergy status to penicillin; Z88.6 Allergy status to analgesic agent; Z88.8 Allergy status to other drugs, medicaments and biological substances

== ENCOUNTER 2020-11-25 17:18 | Emergency (ER) | payer OTHER ==
[~2020-11-25] VITALS: Ht 160 cm; Wt 90.7 kg
[2020-11-25 17:47] LABS: URINE BILIRUBIN NEGATIVE (Negative); URINE BLOOD NEGATIVE (Negative); URINE CLARITY CLEAR; URINE COLOR YELLOW; URINE GLUCOSE-RANDOM NEGATIVE (Negative); URINE KETONES NEGATIVE (Negative); URINE LEUKOCYTES-REFLEX NEGATIVE (Negative); URINE NITRITE-REFLEX NEGATIVE (Negative); URINE PROTEIN NEGATIVE (Negative); URINE SPECIFIC GRAVITY >= 1.030 (1.005-1.030); URINE UROBILINOGEN 0.2 E.U./dl (0.2-1.0)
[2020-11-25 18:00] LABS: ABSOLUTE BASOPHILS 0.1 thou/uL (0.0-0.2); ABSOLUTE EOSINOPHILS 0.1 thou/uL (0.0-0.7); ABSOLUTE LYMPHOCYTES 1.9 thou/uL (0.8-5.3); ABSOLUTE MONOCYTES 0.7 thou/uL (0.0-1.2); ABSOLUTE NEUTROPHILS 8.6 thou/uL (1.6-8.1); EOSINOPHILS 0.8 %; HEMATOCRIT 45.6 % (37.0-47.0); HEMOGLOBIN 15.5 gm/dL (12.0-15.0); LYMPHOCYTES 16.8 %; MCH 31.7 pg (26.0-34.0); MCV 93.2 fL (80.0-100.0); MONOCYTES 5.8 %; MPV 8.3 fl. (7.2-11.1); NUCLEATED RBCS 0 /100WBC; PLATELET COUNT* 254 thou/uL (150-400); POLYS 75.6 %; RBC 4.89 mil/uL (4.20-5.00); RDW-CV 13.4 % (10.5-14.5); WBC 11.4 thou/uL (4.0-11.0)
[2020-11-25 18:09] LABS: CALCIUM 9.1 mg/dL (8.5-10.1); CREATININE 1.8 mg/dL (0.6-1.3); POTASSIUM 4.1 mmol/L (3.5-5.1)
[2020-11-25 18:13] LABS: ALBUMIN 3.8 g/dL (3.4-5.0); TOTAL BILIRUBIN 0.5 mg/dL (<0.1-1.0); TOTAL PROTEIN 7.2 g/dL (6.4-8.2)
[2020-11-25 18:49] VITALS: BP 108/62
== END 2020-11-25 18:49 | disposition home or self-care (01) ==
LOC: M.ERS 17:18
PROVIDERS: Physician Assistant
DX: R11.2 Nausea with vomiting, unspecified (principal); Z88.0 Allergy status to penicillin; Z88.6 Allergy status to analgesic agent; Z88.1 Allergy status to other antibiotic agents; Z88.5 Allergy status to narcotic agent; Z79.899 Other long term (current) drug therapy; Z79.82 Long term (current) use of aspirin; Z90.710 Acquired absence of both cervix and uterus; Z90.89 Acquired absence of other organs; I10 Essential (primary) hypertension

== ENCOUNTER → 2020-11-28 | Outpatient (CLI) | payer OTHER | LOC: M.RAD 10:01 | PROVIDERS: ATTEND Family Medicine | DX: Z12.31 Encounter for screening mammogram for malignant neoplasm of breast (principal) ==

== ENCOUNTER 2020-12-25 19:12 | Observation (INO) | payer OTHER ==
[~2020-12-25] VITALS: Ht 160 cm; Wt 86.2 kg
[2020-12-25 19:26] VITALS: BP 112/80
[2020-12-25 19:36] LABS: ABSOLUTE BASOPHILS 0.2 thou/uL (0.0-0.2); ABSOLUTE EOSINOPHILS 0.4 thou/uL (0.0-0.7); ABSOLUTE LYMPHOCYTES 2.2 thou/uL (0.8-5.3); ABSOLUTE NEUTROPHILS 9.6 thou/uL (1.6-8.1); BASOPHILS 1.2 %; EOSINOPHILS 3.2 %; HEMATOCRIT 44.8 % (37.0-47.0); HEMOGLOBIN 14.9 gm/dL (12.0-15.0); LYMPHOCYTES 16.7 %; MCH 31.1 pg (26.0-34.0); MCHC 33.3 g/dL (28.0-37.0); MCV 93.2 fL (80.0-100.0); MONOCYTES 7.3 %; MPV 7.9 fl. (7.2-11.1); NUCLEATED RBCS 0 /100WBC; PLATELET COUNT* 408 thou/uL (150-400); POLYS 71.6 %; RDW-CV 13.6 % (10.5-14.5); WBC 13.4 thou/uL (4.0-11.0)
[2020-12-25] MEDS ORDERED: LIPITOR20 MG PO (19:38)
[2020-12-25 19:46] LABS: CALCIUM 9.4 mg/dL (8.5-10.1); CREATININE 2.1 mg/dL (0.6-1.3); POTASSIUM 3.9 mmol/L (3.5-5.1)
[2020-12-25 19:50] LABS: ALBUMIN 3.7 g/dL (3.4-5.0); MAGNESIUM 1.8 mg/dL (1.8-2.4); TOTAL BILIRUBIN 0.4 mg/dL (<0.1-1.0); TOTAL PROTEIN 7.9 g/dL (6.4-8.2)
--- NOTE | 2020-12-25 22:36 | NUR ---
CALLED [facility]. FOR MEDICINE NOT AVAILABLE
[2020-12-25 23:43] VITALS: BP 111/70
[2020-12-26 00:15] VITALS: BP 117/76
--- NOTE | 2020-12-26 07:45 | NUR ---
Admit to floor at 0000. She has nausea,vomiting and diarrhea. She sandhu ahve a history of gastroparesis. She has been having a large amount of emesis. She had a IM injection of compazine and zofran IV x 2 since arrival to floor. Shehstaes that zofran makes her nausea worse. She is NPO. She does have a healing rt total knee incision from surgery in nov 2020. She does get up independently.
[2020-12-26 08:08] VITALS: BP 140/90
[2020-12-26 11:31] VITALS: BP 140/90
[2020-12-29] MEDS ORDERED: ALDACTONE100 MG PO (14:41)
[2020-12-29] MEDS ORDERED: ADDERALL 5 MG TA5 M1 PO (14:42)
== END 2020-12-26 12:12 | disposition home or self-care (01) ==
LOC: M.ERS 19:12 → M.TBA-ER 22:03 → M.3W 22:03
PROVIDERS: Emergency Medicine; ADMIT Internal Medicine; ATTEND Internal Medicine
DX: K31.84 Gastroparesis (principal); R11.2 Nausea with vomiting, unspecified; Z20.822 Contact with and (suspected) exposure to COVID-19; R63.4 Abnormal weight loss; K21.9 Gastro-esophageal reflux disease without esophagitis; I25.10 Atherosclerotic heart disease of native coronary artery without angina pectoris; I50.9 Heart failure, unspecified; F41.9 Anxiety disorder, unspecified; Z79.899 Other long term (current) drug therapy

== ENCOUNTER → 2020-12-30 | Day surgery (SDC) | payer OTHER ==
[~2020-12-30] MED LIST changes: +ALDACTONE100 MG PO; +LIPITOR20 MG PO
--- NOTE | ~2020-12-30 | PROC ---
[address] [address] PROCEDURE REPORT Name: BRITNI FROST Room: [facility] M.R.#: [id number] Admission: 12/30/20 Attend Phys: El Oliveira MD Discharge: Date of : 70 Report #: [id number] THIS REPORT FOR: cc: Anitha Stevenson Linda J. DO [facility],Medical Records Staff ~ For GI report, please see the Provation report in Perceptive 7 content. By: 0651Medical Records Staff IVELISSE /FLAVIO
[2020-12-30 13:40] LABS: CALCIUM 9.6 mg/dL (8.5-10.1); CREATININE 1.6 mg/dL (0.6-1.3)
[2020-12-30 13:46] LABS: POTASSIUM 5.4 mmol/L (3.5-5.1)
--- NOTE | 2020-12-30 15:00 | EKG ---
[place] [address] ELECTROCARDIOGRAM REPORT Name: MARGOTBRITNI GINO Room: [facility]#: [id number] Admission: 12/30/20 Attend Phys: El Oliveira MD Discharge: Date of : 70 Date of Service: 12/30/20 1406 Report #: [id number] THIS REPORT FOR: //name// [facility] Test Date: 2020-12-30 Test Time: 14:06:33 Pat Name: BRITNI FROST Department: Room: Gender: F [employer]age [employer]: [facility] : 1970 Requested By: Bravo Harrison Order Number: [id number] Reading MD: Jarvis Christine Measurements Intervals [place] Rate: 119 P: 11 [place]: 137 QRS: -26 QRSD: 76 T: 12 QT: 301 QTc: 424 Interpretive Statements Sinus tachycardia Inferior infarct, old Consider anterior infarct Compared to ECG 07/04/2020 12:01:39 Sinus rhythm no longer present Electronically Signed On 12-30-2020 15:00:10 CDT by Jarvis Christine [email or web address] <ELECTRONICALLY SIGNED> By: Jarvis Christine MD, FACC 12/30/20 1500 1406 140 Jarvis Christine MD, [facility] /EPI
--- NOTE | 2021-01-04 13:08 | PATH ---
[address] [address] PATHOLOGY RPT PROCEDURE Name: BRITNI FROST Room: [facility].R.#: [id number] Admission: 12/30/20 Date of : 70 Discharge: Report #: [id number] Path Case #: [id number] [facility] Accession Number: [id number] . 01 Material submitted: . gastrointestinal site - GASTRITIS BIOPSY . 01 Clinical history: . EGD IN OR INTRACTABLE NAUSEA VOMITING . 02 Diagnosis: Gastritis biopsy: - Mild nonspecific chronic gastritis, negative for Helicobacter pylori organisms and dysplasia. (MIKE:sd; 01/03/2021) . Special stain: H. pylori immuno QMS 01/03/2021 1113 Local . 02 Electronically signed: . Bill Beaver MD, Pathologist NPI- [id number] . 01 Gross description: . The specimen is submitted in formalin, labeled "Frost, Britni, gastritis biopsy". Received are 4 segments of pale clemente tissue ranging in size from 0.2 to 0.3 cm in maximum dimensions. The specimen is submitted entirely in cassette A1. ([facility]; 01/02/2021) NRI/NRI 01/02/2021 2153 Local . 02 Pathologist provided ICD-10: K29.50 . 02 CPT . 538515, C25318 Specimen Comment: A courtesy copy of this report has been sent to [phone] Specimen Comment: [id number] Specimen Comment: Report sent to / DR KRUGER Specimen Comment: A duplicate report has been generated due to demographic updates. Performed at: [address] [id number] MD Shay Lynch MD Phone: [phone] Performed at: [address] [address] PATHOLOGY RPT PROCEDURE Name: BRITNI FROST Room: [facility]#: [id number] Admission: 12/30/20 Date of : 70 Discharge: Report #: [id number] Path Case #: [id number] [address] [id number] MD Bill Beaver MD Phone: [phone]
== END | disposition home or self-care (01) ==
LOC: M.SUR 12:42
PROVIDERS: Anesthesiology; ATTEND Internal Medicine Gastroenterology
DX: K21.9 Gastro-esophageal reflux disease without esophagitis (principal); K29.50 Unspecified chronic gastritis without bleeding; R11.2 Nausea with vomiting, unspecified; K44.9 Diaphragmatic hernia without obstruction or gangrene; I25.10 Atherosclerotic heart disease of native coronary artery without angina pectoris; F41.9 Anxiety disorder, unspecified; Z98.890 Other specified postprocedural states; Z79.899 Other long term (current) drug therapy; Z20.822 Contact with and (suspected) exposure to COVID-19; Z87.891 Personal history of nicotine dependence; Z88.0 Allergy status to penicillin; Z88.2 Allergy status to sulfonamides

== ENCOUNTER → 2021-04-21 | Outpatient (CLI) | payer OTHER ==
[2021-04-21 14:29] LABS: HEMATOCRIT 38.7 % (37.0-47.0); HEMOGLOBIN 12.8 gm/dL (12.0-15.0); MCH 32.4 pg (26.0-34.0); MCHC 33.2 g/dL (28.0-37.0); MCV 97.7 fL (80.0-100.0); RBC 3.96 mil/uL (4.20-5.00); RDW-CV 15.1 % (10.5-14.5); WBC 7.4 thou/uL (4.0-11.0)
[2021-04-21 14:42] LABS: ALBUMIN 3.5 g/dL (3.4-5.0); CALCIUM 8.9 mg/dL (8.5-10.1); CREATININE 1.6 mg/dL (0.6-1.3); POTASSIUM 3.7 mmol/L (3.5-5.1); TOTAL BILIRUBIN 0.4 mg/dL (<0.1-1.0); TOTAL PROTEIN 6.6 g/dL (6.4-8.2); URIC ACID* 6.9 mg/dL (2.6-7.2)
== END ==
LOC: M.ULTRA 14:01
PROVIDERS: ATTEND Family Medicine
DX: M25.472 Effusion, left ankle (principal); M79.89 Other specified soft tissue disorders; M79.662 Pain in left lower leg; R60.0 Localized edema

== ENCOUNTER → 2021-05-02 | Outpatient (CLI) | payer OTHER | LOC: M.MRI 07:30 | PROVIDERS: ATTEND Family Medicine | DX: M77.32 Calcaneal spur, left foot (principal); M25.472 Effusion, left ankle ==